=== PATIENT | male | born 1985 | race Caucasian/White ===

== ENCOUNTER 2017-07-03 18:37 | Emergency (ER) | payer SELFPAY ==
[2017-07-03 18:45] VITALS: BP 128/78
[2017-07-03] MEDS ORDERED: PENICILLIN V POTASSIUM 500 MG TABLET PO ONE (19:46)
[2017-07-03] MEDS ORDERED: LIDOCAINE 2% VISCOUS SOLN 20 ML UDCUP PO ONE (19:46)
[2017-07-03] MEDS ORDERED: IBUPROFEN 800 MG TABLET PO ONE (19:49)
--- NOTE | 2017-07-03 19:54 | ER Document Report ---
ED Oral Problem - General Chief Complaint: Toothache Stated Complaint: RIGHT SIDE JAW PAIN Time Seen by Provider: 07/03/17 19:18 Mode of Arrival: Ambulatory Information source: Patient Notes: 32-year-old male presents to ED for complaint of right lower jaw pain times a year and a half worse for the last 3 days. He has multiple decayed teeth upper lower both sides. States he really needs most of his teeth removed and tooth has been this area of his mouth has been hurting worse than normal for the last 3 days. He states he had planned to go to the dentist and have most of these teeth removed when the [place] messed up his check for his school and now he does not have the money to go to the dentist. TRAVEL OUTSIDE OF THE [place] IN LAST 30 DAYS: No - HPI Patient complains to provider of: Toothache Onset: Other - Chronic for more than a year but worse for the last 3 or 4 days Quality of pain: Sharp, Throbbing Severity: Moderate Pain Level: 3 Associated symptoms: Jaw pain, Toothache Worsened by: Cold Similar symptoms previously: Yes Recently seen / treated by doctor/dentist: No - Related Data Allergies/Adverse Reactions: No Known Allergies Allergy (Verified 07/03/17 18:41) Past Medical History - General Information source: Patient - Social History Smoking Status: Current Every Day Smoker Cigarette use (# per day): Yes - Pack per day Chew tobacco use (# tins/day): No Smoking Education Provided: Yes - Less than 2 minutes Frequency of alcohol use: None Drug Abuse: None Occupation: Student Lives with: Family Family History: Arthritis, CAD, CVA, DM, Hyperlipidemia, Hypertension, Malignancy. denies: COPD, Thyroid Disfunction Patient has suicidal ideation: No Patient has homicidal ideation: No - Past Medical History Cardiac Medical History: Reports: None Pulmonary Medical History: Reports: Hx COPD, Hx Pneumonia EENT Medical History: Reports: None Neurological Medical History: Reports: None Endocrine Medical History: Reports: None Renal/ Medical History: Reports: None Malignancy Medical History: Reports None GI Medical History: Reports: Hx Irritable Bowel Musculoskeltal Medical History: Reports Hx Arthritis, Reports Hx Musculoskeletal Deformity, Reports Hx Musculoskeletal Trauma Skin Medical History: Reports None Psychiatric Medical History: Reports: None Traumatic Medical History: Reports: None Infectious Medical History: Reports: None Past Surgical History: Reports: Hx Oral Surgery, Other - Eye surgery at to correct defect - Immunizations Immunizations up to date: Yes Hx Diphtheria, Pertussis, Tetanus Vaccination: Yes Review of Systems - Review of Systems Constitutional: No symptoms reported EENT: Mouth pain, Dental problem Cardiovascular: No symptoms reported Respiratory: No symptoms reported Gastrointestinal: No symptoms reported Genitourinary: No symptoms reported Male Genitourinary: No symptoms reported Musculoskeletal: No symptoms reported Skin: No symptoms reported Hematologic/Lymphatic: No symptoms reported Neurological/Psychological: No symptoms reported -: Yes All other systems reviewed and negative Physical Exam - Vital signs Vitals: Temp Pulse Resp BP Pulse Ox 97.9 F 87 16 128/78 H 98 07/03/17 18:43 07/03/17 18:43 07/03/17 18:43 07/03/17 18:43 07/03/17 18:43 Interpretation: Normal - General General appearance: Appears well, Alert - HEENT Head: Normocephalic, Atraumatic Eyes: Normal Pupils: PERRL Ears: Normal External canal: Normal Tympanic membrane: Normal Sinus: Normal Nasal: Normal Mouth/Lips: Caries Mucous membranes: Normal Teeth diagram: 1 - Multiple decayed teeth all areas of mouth more pain in the lower right jaw. Gums surrounding the lower right jaw teeth are a little better than the other areas. No definite abscess is noted Pharynx: Normal Neck: Normal - Respiratory Respiratory status: No respiratory distress Chest status: Nontender Breath sounds: Normal Chest palpation: Normal - Cardiovascular Rhythm: Regular Heart sounds: Normal auscultation Murmur: No - Abdominal Inspection: Normal Distension: No distension Bowel sounds: Normal Tenderness: Nontender Organomegaly: No organomegaly - Back Back: Normal, Nontender - Extremities General upper extremity: Normal inspection, Nontender, Normal color, Normal ROM , Normal temperature General lower extremity: Normal inspection, Nontender, Normal color, Normal ROM , Normal temperature, Normal weight bearing. No: Barb's sign - Neurological Neuro grossly intact: Yes Cognition: Normal Orientation: AAOx4 Amna Coma Scale Eye Opening: Spontaneous [place] Coma Scale Verbal: Oriented [place] Coma Scale Motor: Obeys Commands Amna Coma Scale Total: 15 Speech: Normal Motor strength normal: LUE, RUE, LLE, RLE Sensory: Normal - Psychological Associated symptoms: Normal affect, Normal mood - Skin Skin Temperature: Warm Skin Moisture: Dry Skin Color: Normal Course - Re-evaluation Re-evalutation: 07/03/17 19:59 Patient treated with ibuprofen penicillin and viscous lidocaine for the dental pain and infection in his mouth. Patient has been instructed that he needs to follow-up with the dentist and oral surgeon for definitive care of his dental pain. Patient will be discharged home to follow-up with the dentist. - Vital Signs Vital signs: Temp Pulse Resp BP Pulse Ox 97.9 F 87 16 128/78 H 98 07/03/17 18:43 07/03/17 18:43 07/03/17 18:43 07/03/17 18:43 07/03/17 18:43 Discharge - Discharge Clinical Impression: Pain due to dental caries Condition: Stable Disposition: HOME, SELF-CARE Additional Instructions: TOOTHACHE: Your pain is due to dental decay. The tooth must be repaired in order for you to feel better. You will, therefore, be referred to a dentist. We do not have dentists on the staff at [facility]. Severe swelling or drainage around a tooth usually means a dental abscess. This also requires evaluation and treatment by the dentist, but antibiotics may be prescribed while awaiting dental treatment. You should be rechecked immediately if you develop major swelling of the face, increasing pain, a lump in the jaw or gums, headache, difficulty swallowing, or fever. PENICILLIN V K: You have been given a prescription for Penicillin VK. Your physician has determined that this is the best antibiotic for your condition. Pen VK can be taken with meals, however more of the antibiotic gets into the bloodstream if it's taken on an empty stomach. Penicillin usually has no side effects. However, allergy to penicillins is common. If you have had an allergic reaction to any drug of the penicillin family, you should never take any other penicillin. Notify your doctor at once if you develop hives, itching, swelling, faintness, or shortness of breath. Ibuprofen Ibuprofen is an excellent, safe drug for pain control. In addition, it has potent antiinflammatory effects which are beneficial, especially in the treatment of injuries, arthritis, or tendonitis. It's best to take ibuprofen with food. Persons with ulcer disease or allergy to aspirin should notify their physician of this before taking ibuprofen. Take the medication exactly as prescribed. Don't take additional doses unless instructed to do so by your doctor. If you develop wheezing, shortness of breath, hives, faintness, stomach pain, vomiting, or dark black stools, return for re-evaluation at once. FOLLOW-UP CARE: You have been referred for follow-up care to the dentists listed below. Call the dentists office for an appointment as you were instructed or within the next two days. If you experience worsening or a significant change in your symptoms, notify the physician immediately or return to the Emergency Department at any time for re-evaluation. [facility] [address] [place], [place] Friday mornings, by appointment [facility] [address] [place] [address] [facility] [address] [facility] [address] [facility] ([facility] [address] [email or web address] [address] [place] [address] Friday- 8:00am to 5:00 pm Will see [facility] other [facility]. Charges based on income and family size and accepts Medicare, Medicaid, and Insurances Will pull molars [facility] [id number] Hours of Operation 8:00 am - 4:30 pm weekdays The following dental offices accept Medicaid: [facility] Dr. Hernandez Dr. Cerda Dr. James Dr. Miner Levar Thrasher [place], and Luis oral surgery Dr. Garrett ([place]) Dr. Hodges ([place]) [facility] Drs. Paulson and Navi ([place]) Dr. Tubbs ([place]) [facility] Dr. August ([place]) Drs. Dave and ([place]) Medicaid Care Line Prescriptions: Ibuprofen 600 mg PO Q8HP PRN #20 tablet PRN Reason: Penicillin V Potassium [Penicillin Vk 500 mg Tablet] 500 mg PO BID #20 tablet Forms: Elevated Blood Pressure, Smoking Cessation Education Referrals: [facility] [Provider Group] - Follow up as needed
== END 2017-07-03 20:06 | disposition home or self-care (01) ==
LOC: ER 18:37
DX: K02.9 Dental caries, unspecified (principal); K04.7 Periapical abscess without sinus; K08.89 Other specified disorders of teeth and supporting structures; J44.9 Chronic obstructive pulmonary disease, unspecified; F17.210 Nicotine dependence, cigarettes, uncomplicated; Z71.6 Tobacco abuse counseling
CPT/HCPCS: 99282; J3490

== ENCOUNTER 2019-06-17 20:46 | Emergency (ER) | payer OTHER ==
[2019-06-17 21:10] VITALS: BP 118/71
[2019-06-17] MEDS ORDERED: AMOXICILLIN TRIHYDRATE 500 MG CAPSULE PO ONE (21:54)
--- NOTE | 2019-06-17 21:56 | ER Document Report ---
HPI - HPI Patient complains to provider of: left ear pain Time Seen by Provider: 06/17/19 21:50 Onset: Other Onset/Duration: Persistent Severity: Severe Pain Level: 5 Context: 34-year-old male presents emergency department with complaints of left ear pain for the last couple days. Denies fever vomiting diarrhea. Has not been swimming. Does not wear ear buds. Reports he had a ear infection in the past as left ear. Associated Symptoms: None Exacerbated by: Denies Relieved by: Denies Similar symptoms previously: No Recently seen / treated by doctor: No Past Medical History - General Information source: Patient - Social History Smoking Status: Current Every Day Smoker Cigarette use (# per day): Yes Chew tobacco use (# tins/day): No Frequency of alcohol use: None Drug Abuse: None Family History: Arthritis, CAD, CVA, DM, Hyperlipidemia, Hypertension, Malignancy. denies: COPD, Thyroid Disfunction Patient has suicidal ideation: No Patient has homicidal ideation: No Pulmonary Medical History: Reports: Hx COPD, Hx Pneumonia Renal/ Medical History: Denies: Hx Peritoneal Dialysis GI Medical History: Reports: Hx Irritable Bowel Musculoskeletal Medical History: Reports Hx Arthritis, Reports Hx Musculoskeletal Deformity, Reports Hx Musculoskeletal Trauma Past Surgical History: Reports: Hx Oral Surgery, Hx Orthopedic Surgery, Other - Eye surgery at to correct defect - Immunizations Immunizations up to date: Yes Hx Diphtheria, Pertussis, Tetanus Vaccination: Yes Vertical Provider Document - CONSTITUTIONAL Agree With Documented VS: Yes Exam Limitations: No Limitations General Appearance: WD/WN, No Apparent Distress - INFECTION CONTROL TRAVEL OUTSIDE OF THE [place] IN LAST 30 DAYS: No - HEENT HEENT: Atraumatic, Normocephalic, Tympanic Membrane Red - Left TM, Tympanic Membrane Bulging - Left. negative: Conjuctival Injection, Pharyngeal Erythema - NECK Neck: Normal Inspection, Supple. negative: Lymphadenopathy-Left, Lymphadenopathy-Right - RESPIRATORY Respiratory: Breath Sounds Normal, No Respiratory Distress - CARDIOVASCULAR Cardiovascular: Regular Rate, Regular Rhythm - MUSCULOSKELETAL/EXTREMETIES Musculoskeletal/Extremeties: GERARDO BONNER - NEURO Level of Consciousness: Awake, Alert, Appropriate Motor/Sensory: No Motor Deficit - DERM Integumentary: Warm, Dry Course - Re-evaluation Re-evalutation: 06/17/19 22:03 Patient instructed on amoxicillin. He requested something different because reports amoxicillin does not work on him. I advised him that we will try amoxicillin [facility] with [facility] for [facility] within 1 week or return here for continued pain. He verbalized understanding to all instructions. Dictation of this chart was performed using voice recognition software; therefore, there may be some unintended grammatical errors. - Vital Signs Vital signs: Temp Pulse Resp BP Pulse Ox 98.4 F 80 18 118/71 98 06/17/19 21:09 06/17/19 21:09 06/17/19 21:09 06/17/19 21:09 06/17/19 21:09 Discharge - Discharge Clinical Impression: Left otitis media Qualifiers: Otitis media type: unspecified Qualified Code(s): H66.92 - Otitis media, unspecified, left ear Condition: Stable Disposition: HOME, SELF-CARE Instructions: Amoxicillin ([facility]), Use of [id number] Ibuprofen ([facility]), Otitis Media ([facility]) Additional Instructions: *You have been evaluated for ear pain, otitis media *Take medication as prescribed *[facility] within one week for recheck Take ibuprofen as indicated for pain *Return to ED for worsening condition, changes, needs Prescriptions: Amoxicillin Trihydrate [Amoxil 500 mg Capsule] 500 mg PO TID #30 capsule
== END 2019-06-17 22:05 | disposition home or self-care (01) ==
LOC: ER 20:46
DX: H66.92 Otitis media, unspecified, left ear (principal); H92.02 Otalgia, left ear; F17.210 Nicotine dependence, cigarettes, uncomplicated; J44.9 Chronic obstructive pulmonary disease, unspecified
CPT/HCPCS: 99282